=== PATIENT | male | born 1970 | race Caucasian/White ===

== ENCOUNTER 2018-04-28 07:16 | Day surgery (SDC) | payer OTHER ==
[2018-04-28] MEDS: NS 1,000 ML IV ×2 (07:30→07:53)
[2018-04-28] MEDS ORDERED: LIDOCAINE 2% INJ 100 MG/5 ML SDV (FOR ANES.) As Ordered (08:30)
[2018-04-28] MEDS ORDERED: PROPOFOL 200 MG/20 ML VIAL As Ordered (08:30)
== END 2018-04-28 10:15 | disposition home or self-care (01) ==
LOC: M OPP 07:16
DX: K63.3 Ulcer of intestine (principal); K52.9 Noninfective gastroenteritis and colitis, unspecified; K63.5 Polyp of colon; K64.8 Other hemorrhoids; K59.00 Constipation, unspecified; R10.32 Left lower quadrant pain; G43.909 Migraine, unspecified, not intractable, without status migrainosus; G47.30 Sleep apnea, unspecified; F41.9 Anxiety disorder, unspecified; F32.9 Major depressive disorder, single episode, unspecified; F43.10 Post-traumatic stress disorder, unspecified; K21.9 Gastro-esophageal reflux disease without esophagitis; M12.9 Arthropathy, unspecified; N40.0 Benign prostatic hyperplasia without lower urinary tract symptoms; Z79.899 Other long term (current) drug therapy; Z87.820 Personal history of traumatic brain injury
CPT/HCPCS: 45380

== ENCOUNTER → 2018-08-13 | Outpatient (CLI) | payer OTHER ==
[2018-08-13 12:08] LABS: ERYTHROCYTE SEDIMENTATION RATE 10 mm/hr (0-15)
[2018-08-13 15:45] LABS: HEPATITIS B SURFACE ANTIBODY NEGATIVE (POSITIVE); HEPATITIS B SURFACE ANTIGEN NEGATIVE (NEGATIVE)
[2018-08-13 16:02] LABS: ALBUMIN 3.7 GM/DL (3.2-5.2); ALBUMIN/GLOBULIN RATIO 1.09 (1.00-1.93); ALKALINE PHOSPHATASE 79 U/L (45-117); ALT/SGPT 34 U/L (12-78); AST/SGOT 21 U/L (7-37); BILIRUBIN,DIRECT 0.2 MG/DL (0.0-0.2); C REACTIVE PROTEIN QUANTITATIV < 0.30 MG/DL (0.00-0.30); TOTAL PROTEIN 7.1 GM/DL (6.4-8.2)
[2018-08-15 13:43] LABS: QUANTIFERON GOLD TB Negative (Negative); TB Test (QFT) Antigen 0.34 IU/mL (.); TB Test (QFT) Antigen Minus Ni 0.31 IU/mL (.); TB Test (QFT) Mitogen 7.46 IU/mL (.); TB Test (QFT) Nil 0.03 IU/mL (.)
[2018-08-16 00:07] LABS: ANCA-ATYPICAL <1:20 titer (Neg:<1:20); ANTI-SACCHAROMYCES CEREV. IgA <20.0 Units (0.0-24.9); ANTI-SACCHAROMYCES CEREV. IgG <20.0 Units (0.0-24.9); CYTOPLASMIC NEUTROP AB ANCA-C <1:20 titer (Neg:<1:20); HEPATITIS B CORE ANTIBODY IGG Negative (Negative); PERINUCLEAR AB ANCA-P <1:20 titer (Neg:<1:20)
== END ==
LOC: M LAB 10:32
DX: K63.3 Ulcer of intestine (principal)
CPT/HCPCS: 80076

== ENCOUNTER → 2020-07-28 | Outpatient (CLI) | payer OTHER ==
[~2020-07-28] MED LIST: ATOR1TAB19 PO; B-12100010 PO; DOXA2TAB3 PO; FISH120012 PO; MULT1TAB11 PO; OMEP1CAP73 PO; VITA-122 PO
--- NOTE | 2020-08-17 11:12 | REP ---
LEFT FOOT SERIES: CLINICAL: Sprain, injury. TECHNIQUE: AP, lateral, bilateral oblique views of the left foot. FINDINGS: Soft tissue swelling at the ankle is appreciated along with oblique distal fibular shaft fracture and small medial malleolus fracture. The foot itself appears intact. IMPRESSION: Soft tissue swelling and fractures about the ankle. The foot appears intact. MTDD
--- NOTE | 2020-08-17 11:13 | REP ---
LEFT TIBIA/FIBULA SERIES: CLINICAL: Sprain injury. TECHNIQUE: AP and lateral views of the left tibia/fibula. FINDINGS: There is an oblique mildly displaced fracture through the distal fibular shaft as well as possible small medial malleolar fracture with overlying soft tissue swelling at the ankle. The remainder of the tibia and fibula appear intact. IMPRESSION: Fracture of the distal fibular shaft and possible small medial malleolar fracture. MTDD
--- NOTE | 2020-08-17 11:13 | REP ---
LEFT ANKLE SERIES: CLINICAL: Sprain, injury. TECHNIQUE: AP, lateral, bilateral oblique views of the left ankle. FINDINGS: There is an oblique minimally displaced fracture of the distal fibular shaft and possible small fracture of the medial malleolus with generalized soft tissue swelling noted. IMPRESSION: Fracture of the distal fibular shaft and possible medial malleolar fracture. MTDD
== END ==
LOC: M WUC 15:01
PROVIDERS: ATTEND Physician Assistant
DX: S89.392A Other physeal fracture of lower end of left fibula, initial encounter for closed fracture (principal); X58.XXXA Exposure to other specified factors, initial encounter; Y92.89 Other specified places as the place of occurrence of the external cause

== ENCOUNTER → 2022-02-13 | Outpatient (REF) | payer OTHER ==
[2022-02-13 13:03] LABS: BASO # 0.1 10^3/uL (0.0-0.2); BASO % 0.8 % (0.0-1.0); EOS # 0.1 10^3/uL (0.0-0.5); EOS % 1.6 % (0.0-3.0); HEMATOCRIT 42.6 % (42.0-52.0); HEMOGLOBIN 14.3 g/dl (13.5-17.5); LYMPH # 2.6 10^3/uL (1.5-5.0); LYMPH % 34.3 % (24.0-44.0); MEAN CORPUSCULAR HEMOGLOBIN 32.4 pg (27.0-33.0); MEAN CORPUSCULAR HGB CONC 33.6 g/dl (32.0-36.5); MEAN CORPUSCULAR VOLUME 96.6 fl (80.0-96.0); MONO # 0.7 10^3/uL (0.0-0.8); MONO % 8.8 % (2.0-8.0); NEUTROPHILS % 54.1 % (36.0-66.0); PLATELET COUNT, AUTOMATED 274 10^3/uL (150-450); RED BLOOD COUNT 4.41 10^6/uL (4.30-6.10); WHITE BLOOD COUNT 7.5 10^3/uL (4.0-10.0)
[2022-02-13 13:26] LABS: ALBUMIN 3.9 GM/DL (3.2-5.2); ALT/SGPT 33 U/L (12-78); BILIRUBIN,TOTAL 0.4 MG/DL (0.2-1.0); BLOOD UREA NITROGEN 12 MG/DL (7-18); CALCIUM LEVEL 9.5 MG/DL (8.5-10.1); CARBON DIOXIDE LEVEL 26 MEQ/L (21-32); CHLORIDE LEVEL 108 MEQ/L (98-107); CREATININE FOR GFR 1.21 MG/DL (0.70-1.30); GLOMERULAR FILTRATION RATE > 60.0 (>56); GLUCOSE, FASTING 99 MG/DL (70-100); POTASSIUM SERUM 4.3 MEQ/L (3.5-5.1); SODIUM LEVEL 143 MEQ/L (136-145); TOTAL PROTEIN 7.4 GM/DL (6.4-8.2)
[2022-02-13 13:36] LABS: ERYTHROCYTE SEDIMENTATION RATE 10 mm/hr (0-20)
== END ==
LOC: M SFHCRHEU 09:00
PROVIDERS: ATTEND Internal Medicine Rheumatology
DX: R76.8 Other specified abnormal immunological findings in serum (principal); M35.3 Polymyalgia rheumatica; K50.90 Crohn's disease, unspecified, without complications

== ENCOUNTER → 2022-04-25 | Outpatient (REF) | payer OTHER ==
[2022-04-25 12:39] LABS: BASO % 0.5 % (0.0-1.0); EOS # 0.1 10^3/uL (0.0-0.5); EOS % 0.6 % (0.0-3.0); HEMATOCRIT 42.2 % (42.0-52.0); HEMOGLOBIN 14.1 g/dl (13.5-17.5); LYMPH # 1.8 10^3/uL (1.5-5.0); LYMPH % 21.4 % (24.0-44.0); MEAN CORPUSCULAR HEMOGLOBIN 32.5 pg (27.0-33.0); MEAN CORPUSCULAR HGB CONC 33.4 g/dl (32.0-36.5); MEAN CORPUSCULAR VOLUME 97.2 fl (80.0-96.0); MONO # 0.5 10^3/uL (0.0-0.8); MONO % 5.6 % (2.0-8.0); NEUTROPHILS # 6.1 10^3/uL (1.5-8.5); NEUTROPHILS % 71.5 % (36.0-66.0); PLATELET COUNT, AUTOMATED 275 10^3/uL (150-450); RED BLOOD COUNT 4.34 10^6/uL (4.30-6.10); WHITE BLOOD COUNT 8.6 10^3/uL (4.0-10.0)
[2022-04-25 13:08] LABS: ALBUMIN 3.8 GM/DL (3.2-5.2); ALT/SGPT 41 U/L (12-78); BILIRUBIN,TOTAL 0.6 MG/DL (0.2-1.0); BLOOD UREA NITROGEN 14 MG/DL (7-18); CALCIUM LEVEL 9.1 MG/DL (8.5-10.1); CARBON DIOXIDE LEVEL 28 MEQ/L (21-32); CHLORIDE LEVEL 108 MEQ/L (98-107); CREATININE FOR GFR 1.23 MG/DL (0.70-1.30); GLOMERULAR FILTRATION RATE > 60.0 (>56); GLUCOSE, FASTING 101 MG/DL (70-100); POTASSIUM SERUM 4.8 MEQ/L (3.5-5.1); SODIUM LEVEL 139 MEQ/L (136-145); URIC ACID 7.7 MG/DL (3.5-7.2)
== END ==
LOC: M SFHCRHEU 10:08
PROVIDERS: ATTEND Internal Medicine Rheumatology
DX: R76.8 Other specified abnormal immunological findings in serum (principal); M35.3 Polymyalgia rheumatica; K50.90 Crohn's disease, unspecified, without complications; M1A.09X0 Idiopathic chronic gout, multiple sites, without tophus (tophi)
CPT/HCPCS: 36415; 80053; 84550; 85025; G0463

== ENCOUNTER → 2023-10-03 | Outpatient (REF) | payer OTHER ==
[~2023-10-03] MED LIST changes: -DOXA2TAB3 PO; +DOXA2TAB61 PO
== END ==
LOC: M SFHCRHEU 09:28
PROVIDERS: ATTEND Internal Medicine Rheumatology
DX: Z53.9 Procedure and treatment not carried out, unspecified reason (principal); M1A.09X0 Idiopathic chronic gout, multiple sites, without tophus (tophi); R76.8 Other specified abnormal immunological findings in serum; M35.3 Polymyalgia rheumatica; K50.90 Crohn's disease, unspecified, without complications

== ENCOUNTER → 2024-05-01 | Outpatient (REF) | payer OTHER | LOC: M SFHCRHEU 16:20 | PROVIDERS: ATTEND Internal Medicine Rheumatology | DX: M1A.09X0 Idiopathic chronic gout, multiple sites, without tophus (tophi) (principal); R76.8 Other specified abnormal immunological findings in serum; M35.3 Polymyalgia rheumatica; K50.90 Crohn's disease, unspecified, without complications ==